=== PATIENT | female | born 1960 | race Caucasian/White ===

== ENCOUNTER → 2018-05-21 | Outpatient (CLI) | payer BC | END | disposition home or self-care (01) | LOC: RAH 14:45 | PROVIDERS: ATTEND Physical Medicine & Rehabilitation | DX: M48.061 Spinal stenosis, lumbar region without neurogenic claudication (principal); M51.16 Intervertebral disc disorders with radiculopathy, lumbar region | CPT/HCPCS: 72148 ==

== ENCOUNTER 2022-04-10 06:36 | Emergency (ER) | payer BC, OTHER ==
[~2022-04-10] VITALS: Ht 152.4 cm; Wt 61.2 kg
[2022-04-10] MEDS ORDERED: KETOROLAC 30MG VIAL (30MG/ML) IM ONE (07:30)
[2022-04-10] MEDS ORDERED: NAPR375T6 PO (08:42)
[2022-04-10 09:06] VITALS: BP 138/72
== END 2022-04-10 09:41 | disposition home or self-care (01) ==
LOC: EDH 06:36
DX: S39.012A Strain of muscle, fascia and tendon of lower back, initial encounter (principal); W18.2XXA Fall in (into) shower or empty bathtub, initial encounter; Y93.E1 Activity, personal bathing and showering; Y92.89 Other specified places as the place of occurrence of the external cause; Y99.8 Other external cause status
CPT/HCPCS: 99283; 72100; 96372; J1885